=== PATIENT | female | born 2005 | race Two or more races ===

== ENCOUNTER 2024-04-01 09:38 | Outpatient (OUT) | payer OTHER, SELFPAY ==
--- NOTE | 2024-04-01 09:50 | US_ITS ---
The [address] [address] Patient Name: PRIMO LOPEZ MRN: [id number] date: 2005 Sex: F Assigned Patient Location: Current Patient Location: Accession/Order Number: [id number] Exam Date: 04/01/2024 09:55 Report Date: 04/02/2024 07:03 At the request of: RADHA GALLO Procedure: US pelvis w/ transvaginal EXAMINATION: US pelvis w/ transvaginal HISTORY: Pelvic pain in female COMPARISON: No relevant comparison available. TECHNIQUE: Transabdominal and/or transvaginal sonographic examination was performed as indicated by examination type. FINDINGS: UTERUS: Normal size and appearance. Uterus size: 6.4 x 4.0 x 2.9 cm ENDOMETRIUM: IUD within endometrial cavity appearing in reasonable position. Normal homogeneous appearance. Endometrial thickness: 4 mm RIGHT OVARY: Normal size and appearance. Duplex Doppler demonstrates normal waveform and flow; resistive index 0.6. Ovary size: 2.8 x 2.3 x 1.8 cm LEFT OVARY: Contains multiple small follicles. Duplex Doppler demonstrates normal waveform and flow; resistive index 0.5. Ovary size: 3.7 x 2.2 x 2.2 cm CUL-DE-SAC: Unremarkable. No significant free fluid. BLADDER: Unremarkable. OTHER: None. US/US pelvis w/ transvaginal IMPRESSION: 1. IUD within endometrial cavity. 2. No suspicious findings to account for patient's symptoms. Electronically authenticated by: MAGNO ORTIZ Date: 04/02/2024 07:03
== END 2024-04-01 09:39 | disposition home or self-care (01) ==
LOC: US 09:45
PROVIDERS: Visit Provider Obstetrics & Gynecology
DX: R10.2 Pelvic and perineal pain (principal)
CPT/HCPCS: 76830; 76856